=== PATIENT | female | born 1940 | race Hispanic/Latino ===

== ENCOUNTER 2018-09-29 04:57 | Emergency (ER) | payer MEDICARE, MEDICAID, SELFPAY | END 2018-09-29 08:43 | PROVIDERS: Emergency Provider Emergency Medicine; Visit Provider Emergency Medicine | DX: S80.01XA Contusion of right knee, initial encounter (principal); F03.90 Unspecified dementia, unspecified severity, without behavioral disturbance, psychotic disturbance, mood disturbance, and anxiety; W19.XXXA Unspecified fall, initial encounter | CPT/HCPCS: 99284; 51701; 81001; 73562; 70450; 72125; L0140 ==

== ENCOUNTER 2019-02-24 00:21 | Emergency (ER) | payer MEDICARE, MEDICAID, SELFPAY ==
--- NOTE | ~2019-02-24 | XR_ITS ---
EXAMINATION: XR hip RT 2V w AP pelvis DATE: 02/24/2019 01:05 INDICATION: Right hip pain post fall TECHNIQUE: Anteroposterior view of the pelvis and anteroposterior, frog leg and cross-table lateral v iews of the right hip were obtained. COMPARISON: None. FINDINGS: Alignment is normal. No fracture. Polyarticular osteoarthritis, mild at the right hip and left sacroi liac joint and moderate at the left hip and right sacroiliac joint. Moderate to severe lower lumbar s pondylosis. Suture line in the right lower quadrant. Scattered phleboliths and atherosclerotic calcif ications. IMPRESSION: 1. Scattered degenerative skeletal changes. No acute osseous abnormality. Reviewed, dictated and finalized at location A. SKINNER
--- NOTE | ~2019-02-24 | CT_ITS ---
EXAMINATION: CT brain wo con DATE: 02/24/2019 01:09 INDICATION: Head injury. TECHNIQUE: Computed tomography (CT) of the head was performed without intravenous contrast. The mA wa s adjusted according to patient size. Iterative reconstruction technique was employed. The dose-lengt h product was 605.33 mGy-cm. COMPARISON: Head CT 11/25/2018 FINDINGS: There are scattered areas of low attenuation in the cerebral white matter, which is within normal limits for the patient's age. There is no intracranial hemorrhage, acute infarction, or abnorm al intracranial mass lesion. The ventricles are normal in size. There is a right lateral scalp hemato ma. The paranasal sinuses are clear. There are likely changes of ocular lens replacement surgeries. T he mastoid air cells are normal. IMPRESSION: 1. Normal aging brain. Reviewed, dictated and finalized at location B. [employer]AB[employer]TER IMPRESSION: 1. Normal aging brain.
[2019-02-24 00:22] VITALS: BP 165/110; PULSE 83; RESP 15; TEMP 36.3; O2SAT 100
--- NOTE | 2019-02-24 00:27 | ED.FALL ---
HPI - Fall General Chief Complaint: Fall Stated Complaint: fall Time Seen by Provider: 02/24/19 00:22 Source: patient Mode of arrival: EMS Limitations: dementia History of Present Illness HPI Narrative: The pt is a 78 y/o female who presents to the ED, via EMS, with c/o a recent fall that occurred tonight. Per EMS, the pt was walking to the bathroom from bed when she slipped on water and fell. The pt hit the back of her head and currently reports pain at the back of her head. She denies neck pain, pain in her extremities, ABD pain, or CP. The pt is primarily Guyanese-speaking. A complete HPI and PMHx was limited by the pt's dementia. MD complaint: fall Fall from: standing Fall witnessed: no Location of injury: head (back of head) Associated symptoms (after fall): other (none) Related Data Allergies Allergy/AdvReac Type Severity Reaction Status Date / Time iohexol Allergy Unknown Verified 02/24/19 03:19 [From CONTRAST - CT, XRAY] shellfish derived Allergy Unknown Verified 02/24/19 03:19 Review of Systems Review of Systems: ROS unobtainable: other (A complete ROS was limited by the pt's dementia.) Cardiovascular: Cardiovascular: Denies chest pain Gastrointestinal: Gastrointestinal: Denies abdominal pain Musculoskeletal: Musculoskeletal: Denies neck pain and Denies other (pain in extremities) Neurologic: Reports other (pain at back of head) PMFSH Comments A complete PMHx was unobtainable due to the pt's dementia. Exam Narrative: Exam Narrative: GENERAL: Well-appearing, well-nourished, and in no acute distress. HEAD: Normocephalic, lhematoma right occipital parietal region. EYES: PERRLA and EOMI. ENT: Mucous membranes moist. CHEST: Clear to auscultation. No respiratory distress. HEART: Regular rate and rhythm. Normal peripheral pulses EXTREMITIES: Normal range of motion. No edema. Mild tenderness of the right hip without shortening or deformity. SKIN: Warm, dry, no rash. NEURO: Alert and oriented x2. Follows commands without issue. Course Course Emergency Course: Unremarkable x-ray of the hip. Patient with evidence of contusion on CT of the brain. Discharge back to residential. Vital Signs Vital signs: Vital Signs Temperature 97.3 F L 02/24/19 00:22 Pulse Rate 83 11/19/19 00:22 Respiratory Rate 15 02/24/19 00:22 Blood Pressure 165/110 H 02/24/19 00:22 Pulse Oximetry 100 02/24/19 00:22 Temperature 97.3 F L 02/24/19 00:22 Pulse Rate 74 02/24/19 03:00 Respiratory Rate 16 02/24/19 03:00 Blood Pressure 124/62 02/24/19 03:00 Pulse Oximetry 100 02/24/19 03:00 MDM - Fall Imaging Data My impression: Rt HIP/PELVIS XR: Negative as interpreted by EDP. Radiologist's impression: CT Head 02/24/19: Area of increased density in the lt frontal lobe image 28 may represent a parenchymal contusion of a controcoup injury. No midline shift. Visualized paranasal sinuses are clear. Case discussed with Dr. Call at 2:18 Eastern time. Discharge Plan Discharge Clinical Impression: Brain contusion Qualifiers: Encounter type: initial encounter Loss of consciousness presence/duration: without LOC Qualified Code(s): S06.2X0A - Diffuse traumatic brain injury without loss of consciousness, initial encounter Concussion Qualifiers: Encounter type: initial encounter Loss of consciousness presence/duration: without LOC Qualified Code(s): S06.0X0A - Concussion without loss of consciousness, initial encounter Patient Disposition: Home, Self-Care Condition: Stable Instructions: Concussion (ED) Additional Instructions: Return to the ER if you have fever over 101F, you cannot keep down food/water, you lose consciousness, or have other concerns. Follow-up/Referrals: UNKNOWN,DOCTOR [Primary Care Provider] -
[2019-02-24 01:30] VITALS: BP 103/86; PULSE 84; RESP 18; O2SAT 97
[2019-02-24 02:00] VITALS: BP 134/57; PULSE 80; RESP 16; O2SAT 99
[2019-02-24 03:00] VITALS: BP 124/62; PULSE 74; RESP 16; O2SAT 100
--- NOTE | 2019-02-24 03:41 | PC.NURSE ---
report given to Carmen at [facility].
--- NOTE | 2019-02-24 03:41 | PC.NURSE ---
Called [facility] to transport patient back to residential. ETA [id number]
[2019-02-24 04:36] VITALS: BP 121/63; PULSE 80; RESP 18; O2SAT 100
== END 2019-02-24 04:36 ==
PROVIDERS: Emergency Provider Emergency Medicine
DX: S06.2X0A Diffuse traumatic brain injury without loss of consciousness, initial encounter (principal); F03.90 Unspecified dementia, unspecified severity, without behavioral disturbance, psychotic disturbance, mood disturbance, and anxiety; W01.0XXA Fall on same level from slipping, tripping and stumbling without subsequent striking against object, initial encounter
CPT/HCPCS: 70450; 73502; 73521; 99284

== ENCOUNTER 2019-10-01 06:16 | Emergency (ER) | payer MEDICARE, MEDICAID, SELFPAY ==
--- NOTE | ~2019-10-01 | XR_ITS ---
EXAMINATION: XR chest 1V portable DATE: 10/01/2019 06:52 INDICATION: Transient alteration of awareness TECHNIQUE: frontal view of the chest was obtained. COMPARISON: None FINDINGS: No airspace opacities, pulmonary edema, pleural effusion or pneumothorax. Small calcification project ing over the right apex which could represent old granulomatous disease or atherosclerotic calcificat ion along the right carotid artery. The cardiomediastinal silhouette is normal. Coronary artery stent ing. Suggestion of old healed fracture deformity at the right humeral neck. Moderate degenerative ske letal changes in the spine and at both shoulders. IMPRESSION: 1. No acute cardiopulmonary disease. Reviewed, dictated and finalized at location A.
[2019-10-01 06:16] VITALS: BP 115/58; PULSE 81; RESP 12; TEMP 36.3; O2SAT 100
[2019-10-01 06:30] LABS: Glucose Point of Care 39 (65-105)
--- NOTE | 2019-10-01 07:02 | ED.AMS ---
HPI - Altered Mental Status General Chief Complaint: Altered Mental Status Stated Complaint: AMS/LOW BLOOD SUGAR Time Seen by Provider: 10/01/19 06:58 History of Present Illness HPI narrative: History limited by dementia. BIBEMS from long-term for AMS. Initial glucose per EMS was in the 30s. Started on D10. On my evaluation mental status is improving. She has severe dementia, but seems to be at baseline. Related Data Home Medications Medication Instructions Recorded Confirmed acetaminophen 650 mg PO ONCE PRN 02/24/19 02/24/19 divalproex [Depakote Sprinkles] 250 mg PO TID 02/24/19 02/24/19 fluticasone propionate [Flonase 1 spray INTRANASAL Q4H PRN 02/24/19 02/24/19 Allergy Relief] folic acid 1 mg PO DAILY 02/24/19 02/24/19 guaifenesin 200 mg PO Q4H PRN 02/24/19 02/24/19 insulin detemir U-100 [Levemir 5 unit SUBCUT DAILY 02/24/19 02/24/19 U-100 Insulin] levetiracetam [Keppra] 500 mg PO BID 02/24/19 02/24/19 levothyroxine 25 mcg PO DAILY 02/24/19 02/24/19 loratadine 10 mg PO DAILY 02/24/19 02/24/19 melatonin 10 mg PO HS 02/24/19 02/24/19 metformin 500 mg PO BID 02/24/19 02/24/19 multivitamin with minerals [Daily 1 tablet PO DAILY 02/24/19 02/24/19 Multivitamin-Minerals] sennosides-docusate sodium 1 tab-cap PO DAILY 02/24/19 02/24/19 sodium phosphates [Fleet Enema] 118 ml IN ONCE PRN 02/24/19 02/24/19 trazodone 50 mg PO HS 02/24/19 02/24/19 Allergies Allergy/AdvReac Type Severity Reaction Status Date / Time iohexol Allergy Unknown Verified 02/24/19 03:20 [From CONTRAST - CT, XRAY] shellfish derived Allergy Unknown Verified 02/24/19 03:20 Review of Systems Review of Systems: ROS unobtainable: Yes unobtainable due to mental status PMFSH Past Medical History Medical History Diabetes Exam Const: General: alert Nutritional Appearance: well nourished HENMT: Other: endentulous Eyes: Pupils: Equal, round and reactive pupils present Resp: Effort & Inspection: normal respiratory effort Auscultation: clear to auscultation bilaterally Cardio: Rate: regular rate Rhythm: regular rhythm GI: GI Palp: Yes Soft to palpation and No Tenderness to palpation present (GI) Skin: General skin exam: normal color Neuro: General: moves all extremities and CN's II-XI intact bilaterally Course Vital Signs Vital signs: Vital Signs Temperature 36.3 C L 10/01/19 06:16 Pulse Rate 81 10/01/19 06:16 Respiratory Rate 12 10/01/19 06:16 Blood Pressure 115/58 L 10/01/19 06:16 Pulse Oximetry 100 10/01/19 06:16 Temperature 36.3 C L 10/01/19 06:16 Pulse Rate 78 10/01/19 10:28 Respiratory Rate 21 H 10/01/19 10:28 Blood Pressure 105/47 L 10/01/19 10:28 Pulse Oximetry 99 10/01/19 10:28 MDM - Altered Mental Status MDM Narrative Medical decision making narrative: She returned to baseline quickly with correction of her blood sugar. She does have a UTI and appears mildly dehydrated. Medical Records Attestation: I reviewed the patient's medical records. Lab Data Attestation: I reviewed the patient's lab results. Result diagrams: 10/01/19 07:32 10/01/19 07:32 Labs: Lab Results 10/01/19 10/01/19 10/01/19 Range/Units 06:25 07:04 07:32 WBC 5.4 (4.5-10.0) K/mm3 RBC 3.59 L (4.2-5.4) M/mm3 Hgb 12.1 (12.0-15.0) g/dL Hct 36.8 L (37.0-47.0) % MCV 102.5 H (80-100) fl MCH 33.7 (26-34) pg MCHC 32.9 (32-36) g/dl RDW 13.1 (11.5-14.5) % Plt Count 179 (150-375) k/mm3 MPV 13.7 H (7.4-10.4) fl Immature Gran % (Auto) 0.4 (0-0.5) % Neut % (Auto) 83.7 H (45.5-73.1) % Lymph % (Auto) 11.6 L (18.3-44.2) % Winston % (Auto) 3.9 (2.6-8.5) % Eos % (Auto) 0.2 (0-4.4) % Baso % (Auto) 0.2 (0.2-1.2) % Lymph # (Auto) 0.63 L (0.9-3.2) K/mm3 Winston # (Auto) 0.2 (0.1-0.6) K/mm3 Eos # (Auto) 0.0 (0-0.3) K/mm3 Baso # (Auto) 0.0 (0.0-0.
[2019-10-01 07:10] LABS: Glucose Point of Care 210 (65-105)
[2019-10-01 07:42] LABS: Basophils Percent Auto 0.2 % (0.2-1.2); Eosinophils Percent Auto 0.2 % (0-4.4); Hematocrit 36.8 % (37.0-47.0); Hemoglobin 12.1 g/dL (12.0-15.0); Immature Granulocyte Absolute 0.02 K/mm3 (0.00-0.031); Immature Granulocyte Percent A 0.4 % (0-0.5); Immature Platelet Fraction Pct 10.3 % (0.9-11.2); Lymphocytes Absolute Auto 0.63 K/mm3 (0.9-3.2); Lymphocytes Percent Auto 11.6 % (18.3-44.2); Mean Corpuscular HGB Conc 32.9 g/dl (32-36); Mean Corpuscular Hemoglobin 33.7 pg (26-34); Mean Corpuscular Volume 102.5 fl (80-100); Mean Platelet Volume 13.7 fl (7.4-10.4); Monocytes Absolute Auto 0.2 K/mm3 (0.1-0.6); Monocytes Percent Auto 3.9 % (2.6-8.5); Neutrophils Absolute Auto 4.6 K/mm3 (1.3-6.7); Neutrophils Percent Auto 83.7 % (45.5-73.1); Platelet Count Result 179 k/mm3 (150-375); Red Blood Count 3.59 M/mm3 (4.2-5.4); Red Cell Distribution Width 13.1 % (11.5-14.5); White Blood Count 5.4 K/mm3 (4.5-10.0)
[2019-10-01 07:53] LABS: Blood Urea Nitrogen 26 mg/dL (7-17); Calcium 8.9 mg/dL (8.4-10.2); Carbon Dioxide 22 mmol/L (22-30); Chloride 102 mmol/L (98-107); Estimated Glomerular Filt Rate > 60; Glucose 335 mg/dL (65-105); Potassium 5.1 mmol/L (3.4-5.0); Sodium 132 mmol/L (137-145)
--- NOTE | 2019-10-01 07:59 | PC.NURSE ---
This RN tried to straight cath pt. NO urine came out. Informed Dr. Armendariz of this
[2019-10-01] MEDS: SODIUM CHLORIDE 0.9% IV 1,000 ML 999 ML IV CONT (08:03)
--- NOTE | 2019-10-01 08:06 | PC.NURSE ---
Ordered breakfast tray for pt
--- NOTE | 2019-10-01 09:06 | PC.NURSE ---
This RN went into check on cath, pt is still not able to give urine.
[2019-10-01 09:23] LABS: Glucose Point of Care 215 (65-105)
[2019-10-01 09:32] LABS: Add Urine Microscopic? YES; Appearance Urine Clear (Clear); Bilirubin Urine Negative (Negative); Color Urine Yellow (Yellow); Glucose Urine UA 3+ mg/dL (Negative); Ketones Urine Trace mg/dL (Negative); Leukocyte Esterase Ur 1+ LEU/UL (Negative); Mucus Urine Rare /lpf; Nitrate Urine Negative (Negative); Protein Urine 1+ mg/dL (Negative); Specific Grav Ur 1.023 (1.001-1.035); Squamous Epithelial Cell Urine Occasional /hpf (Few)
[2019-10-01 09:37] LABS: Blood Urine Negative (Negative)
[2019-10-01] MEDS: CIPROFLOXACIN 500 MG TAB PO (10:20)
[2019-10-01 10:28] VITALS: BP 105/47; PULSE 78; RESP 21; O2SAT 99
== END 2019-10-01 11:15 ==
PROVIDERS: Emergency Medicine; Emergency Provider Emergency Medicine
DX: F03.90 Unspecified dementia, unspecified severity, without behavioral disturbance, psychotic disturbance, mood disturbance, and anxiety (principal); E11.649 Type 2 diabetes mellitus with hypoglycemia without coma; Z79.4 Long term (current) use of insulin; Z79.84 Long term (current) use of oral hypoglycemic drugs
CPT/HCPCS: 36415; 51701; 71045; 80048; 81001; 82948; 85025; 85055; 87086; 96360; 96361; 99283; A9270; J7030

== ENCOUNTER 2019-11-02 13:15 | Emergency (ER) | payer MEDICARE, MEDICAID, SELFPAY ==
[2019-11-02] VITALS (7 sets, daily range): BP systolic 102–130; BP diastolic 61–70; PULSE 70–79; RESP 12–20; TEMP 36.6; O2SAT 99–100
--- NOTE | ~2019-11-02 | XR_ITS ---
EXAMINATION: XR pelvis 1-2V DATE: 11/02/2019 14:35 INDICATION: Pelvic pain. Fall. TECHNIQUE: An anteroposterior view of the pelvis was obtained. COMPARISON: Pelvis radiograph 02/24/2019 FINDINGS: Bone alignment is normal. No fracture. There is mild right hip osteoarthritis and moderate left hip osteoarthritis. There is moderate lumbar spondylosis. IMPRESSION: 1. Mild right hip osteoarthritis and moderate left hip osteoarthritis. Reviewed, dictated and finalized at location A.
--- NOTE | ~2019-11-02 | CT_ITS ---
EXAMINATION: CT brain wo con, CT cervical spine wo con EXAM DATE: 11/02/2019 14:29 INDICATION: Initial encounter following injury, with pain of the head. Forehead laceration. Head inj ury. TECHNIQUE: Spiral CT of the head was performed without contrast. Axial, coronal and sagittal images were reviewed. Spiral CT of the cervical spine was performed without contrast. Axial images were rev iewed. Coronal and sagittal reformatted images were also reviewed. The dose-length product (DLP) fo r this examination was 605.33 (accession [id number]), 107.16 (accession [id number]) mGy-cm. The exposure was tailored according to patient size, and iterative reconstruction (ASIR) was used as additional dose reduction technique. Comparison is made to prior examination from 02/24/2019. FINDINGS: HEAD CT: There is no acute intraparenchymal hemorrhage. No evidence of intraparenchymal brain mass l esion. No evidence of acute infarction. There is mild periventricular and subcortical hypodensity, n onspecific but probably related to small vessel ischemic disease. There is moderate prominence of t he sulci and ventricles related to cerebral atrophy. There is intracranial carotid arteriosclerosis . There is no mass effect or midline shift. There is no obstructive hydrocephalus suspected. There are no extra-axial collections. There are no acute calvarial fractures. Patient has had bilateral ocular lens surgery. Deep frontal laceration identified. The visualized sinuses and mastoid air cell s are well aerated. 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 There is no evidence of acute cervical fracture. The odontoid process is intact. Pre-dens sp surjit is normal. Prevertebral soft tissue is normal. There are no soft tissue abnormalities identifie d. There is no disc space widening or traumatic vertebral body subluxation suspected. There is mode rate to severe cervical disc disease, and moderate cervical arthropathy. A detailed level by level e valuation of spondylosis can be added as addendum if requested. IMPRESSION: 1. No acute intracranial findings or cervical fracture. 2. Frontal laceration. 3. Age-related findings. Reviewed, dictated and finalized at location A. IMPRESSION: 1. No acute intracranial findings or cervical fracture. 2. Frontal laceration. 3. Age-related findings.
--- NOTE | 2019-11-02 13:53 | ED.GENADULT ---
HPI - General Adult General Chief complaint: Fall Stated complaint: FALL/LAC Time Seen by Provider: 11/02/19 13:22 Source: patient Mode of arrival: ambulatory Limitations: no limitations History of Present Illness HPI narrative: Patient is a 79-year-old female who presents from group home patient had an unwitnessed fall reportedly patient does ambulate and has had frequent falls and been seen in the emergency department. Patient presents with a laceration to the mid forehead. Patient is a limited historian with history of dementia and is reportedly at her baseline of ANO x1. 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 Patient denies any pain. Patient is alert and oriented to self. Patient is a DNR. Related Data Home Medications Medication Instructions Recorded Confirmed acetaminophen 650 mg PO ONCE PRN 02/24/19 02/24/19 divalproex [Depakote Sprinkles] 250 mg PO TID 02/24/19 02/24/19 fluticasone propionate [Flonase 1 spray INTRANASAL Q4H PRN 02/24/19 02/24/19 Allergy Relief] folic acid 1 mg PO DAILY 02/24/19 02/24/19 guaifenesin 200 mg PO Q4H PRN 02/24/19 02/24/19 insulin detemir U-100 [Levemir 5 unit SUBCUT DAILY 02/24/19 02/24/19 U-100 Insulin] levetiracetam [Keppra] 500 mg PO BID 02/24/19 02/24/19 levothyroxine 25 mcg PO DAILY 02/24/19 02/24/19 loratadine 10 mg PO DAILY 02/24/19 02/24/19 melatonin 10 mg PO HS 02/24/19 02/24/19 metformin 500 mg PO BID 02/24/19 02/24/19 multivitamin with minerals [Daily 1 tablet PO DAILY 02/24/19 02/24/19 Multivitamin-Minerals] sennosides-docusate sodium 1 tab-cap PO DAILY 02/24/19 02/24/19 sodium phosphates [Fleet Enema] 118 ml [place] ONCE PRN 02/24/19 02/24/19 trazodone 50 mg PO HS 02/24/19 02/24/19 Allergies Allergy/AdvReac Type Severity Reaction Status Date / Time iohexol Allergy Unknown Verified 11/02/19 13:21 [From CONTRAST - CT, XRAY] shellfish derived Allergy Unknown Verified 11/02/19 13:21 Contrast Media Allergy Unknown Unknown Uncoded 10/01/19 17:09 Review of Systems Review of Systems: ROS unobtainable: Yes unobtainable due to medical condition PMFSH Past Medical History Medical History Diabetes Exam Narrative: Exam Narrative: GENERAL: Well-appearing, well-nourished, and in no acute distress. HEAD: Normocephalic, linear half centimeter laceration superficial mid forehead EYES: PERRLA and EOMI. ENT: Nares clear, no rhinorrhea or epistaxis. Mucous membranes moist. Oropharynx without tonsillar hypertrophy exudate or other lesions. NECK: Supple. No adenopathy or masses. CHEST: Clear to auscultation. No respiratory distress. No wheezes rales or rhonchi HEART: Regular rate and rhythm. No murmur heard. Normal peripheral pulses. EXTREMITIES: Normal range of motion. No edema. Extremities palpated nontender no deformities SKIN: Warm, dry, no rash. NEURO: Alert and oriented x1. Cranial nerves II through XII grossly intact. Patient with normal speech pleasant answering questions PSYCH: Normal mood and affect. Course Course Emergency Course: Patient evaluated in the emergency department no high risk changes will be treated for urinary tract infection had closure of her wound will be sent back to group home for reevaluation by primary care Vital Signs Vital signs: Vital Signs Temperature 97.9 F 11/02/19 13:19 Pulse Rate 79 11/02/19 13:19 Respiratory Rate 11/02/19 13:19 Pulse Oximetry 100 11/02/19 13:19 Temperature 97.9 F 11/02/19 13:19 Pulse Rate 76 11/02/19 15:38 Respiratory Rate 11/02/19 15:38 Blood Pressure 103/68 11/02/19 15:38 Pulse Oximetry 99 11/02/19 15:38 Procedures Laceration Laceration 1: Date: 11/02/19 Time: 15:54 Site: face Size (cm): 1 Description: linear ====== Skin Level ====== Skin laye
[2019-11-02 14:24] LABS: Basophils Percent Auto 0.3 % (0.2-1.2); Eosinophils Percent Auto 0.5 % (0-4.4); Hematocrit 33.9 % (37.0-47.0); Hemoglobin 11.2 g/dL (12.0-15.0); Immature Granulocyte Absolute 0.02 K/mm3 (0.00-0.031); Immature Granulocyte Percent A 0.3 % (0-0.5); Lymphocytes Absolute Auto 1.66 K/mm3 (0.9-3.2); Lymphocytes Percent Auto 25.7 % (18.3-44.2); Mean Corpuscular Hemoglobin 34.8 pg (26-34); Mean Corpuscular Volume 105.3 fl (80-100); Mean Platelet Volume 12.7 fl (7.4-10.4); Monocytes Absolute Auto 0.3 K/mm3 (0.1-0.6); Monocytes Percent Auto 5.3 % (2.6-8.5); Neutrophils Absolute Auto 4.4 K/mm3 (1.3-6.7); Neutrophils Percent Auto 67.9 % (45.5-73.1); Platelet Count Result 167 k/mm3 (150-375); Red Blood Count 3.22 M/mm3 (4.2-5.4); Red Cell Distribution Width 12.6 % (11.5-14.5); White Blood Count 6.5 K/mm3 (4.5-10.0)
[2019-11-02 14:28] LABS: Blood Urea Nitrogen 21 mg/dL (7-17); Calcium 9.4 mg/dL (8.4-10.2); Carbon Dioxide 21 mmol/L (22-30); Chloride 108 mmol/L (98-107); Estimated Glomerular Filt Rate > 60; Glucose 84 mg/dL (65-105); Sodium 139 mmol/L (137-145)
[2019-11-02 15:07] LABS: Add Urine Microscopic? YES; Appearance Urine Cloudy (Clear); Bacteria Urine Trace /hpf; Bilirubin Urine Negative (Negative); Budding Yeast Urine Present /hpf; Color Urine Amber (Yellow); Glucose Urine UA 3+ mg/dL (Negative); Ketones Urine Trace mg/dL (Negative); Leukocyte Esterase Ur 3+ LEU/UL (Negative); Mucus Urine Rare /lpf; Nitrate Urine Negative (Negative); Protein Urine 2+ mg/dL (Negative); Specific Grav Ur 1.017 (1.001-1.035); Squamous Epithelial Cell Urine Rare /hpf (Few); Urobilinogen Urine Negative mg/dL (<2.0); WBC Urine >75 /hpf
[2019-11-02 15:12] LABS: Blood Urine Negative (Negative)
--- NOTE | 2019-11-02 17:01 | PC.NURSE ---
[facility] declined return-no isaiah
--- NOTE | 2019-11-02 17:07 | PC.NURSE ---
[facility] accepted...eta 45 min .... Trip # [id number]
--- NOTE | 2019-11-02 17:30 | PC.NURSE ---
Gave report to [facility]'s Forest Firefighter about Pt. discharge and gave instructions at 1600. Called family to have them transport Pt. back. Pt. family stated that per Forest Firefighter at [facility] that she needs to go by ambulance. Pt. does qualify for an ambulance. [facility] stated 45 min ETA at 1715
--- NOTE | 2019-11-02 19:35 | PC.NURSE ---
bed alarm placed on pt. pt got up out of bed on her own, ambulated to nurses station by her self.
== END 2019-11-02 19:45 ==
PROVIDERS: Emergency Medicine Emergency Medical Services; Emergency Provider Emergency Medicine
DX: S01.81XA Laceration without foreign body of other part of head, initial encounter (principal); N39.0 Urinary tract infection, site not specified; E11.9 Type 2 diabetes mellitus without complications; Z79.4 Long term (current) use of insulin; Z79.84 Long term (current) use of oral hypoglycemic drugs; M16.0 Bilateral primary osteoarthritis of hip; W19.XXXA Unspecified fall, initial encounter
CPT/HCPCS: 12011; 36415; 51701; 70450; 72125; 72170; 80048; 81001; 85025; 87086; 99284

== ENCOUNTER 2019-11-07 09:57 | Emergency (ER) | payer MEDICARE, MEDICAID, SELFPAY ==
[2019-11-07] VITALS (8 sets, daily range): BP systolic 105–143; BP diastolic 60–93; PULSE 80–108; RESP 14–21; TEMP 36.3; O2SAT 99–100
--- NOTE | ~2019-11-07 | CT_ITS ---
EXAMINATION: CT brain wo con EXAM DATE: 11/07/2019 10:37 INDICATION: Fall, right frontal contusion. TECHNIQUE: Spiral CT of the head was performed without contrast. Axial, coronal and sagittal images were reviewed. The dose-length product (DLP) for this examination was 605.33 mGy-cm. The exposure w as tailored according to patient size, and iterative reconstruction (ASIR) was used as additional dos e reduction technique. Comparison is made to prior examination from 11/02/2019. FINDINGS: There is interval development of acute nondisplaced closed posttraumatic fracture of the ri ght zygomatic arch, interval development of acute essentially nondisplaced right orbital inferior wal l fracture, and small amount of gas posterior to the right maxillary sinus wall likely indicating pos terior maxillary sinus wall fracture. There is no calvarial fracture, but there is a small acute subdural hematoma overlying the right temp oral lobe. There is small right frontal scalp contusion. Small amount of acute right frontal anterior paramedian subarachnoid hemorrhage, location most consistent with posttraumatic etiology. No acute intraparenchymal hemorrhage. There is mild microangiopathy and moderate cerebral atrophy. Sc attered carotid siphon arterial sclerosis. Bilateral cataract surgery. IMPRESSION: 1. Small acute right-sided subdural hematoma. 2. Small right-sided subarachnoid hemorrhage anterior paramedian location, likely posttraumatic. 3. Nondisplaced right inferior orbital wall, and probable posterior maxillary sinus wall fractures. 4. Right-sided zygomatic arch fracture. 5. Right frontal scalp hematoma. I discussed these findings with Jose Armendariz MD at 11/07/2019 10:46 CDT. Reviewed, dictated and finalized at location A. IMPRESSION: 1. Small acute right-sided subdural hematoma. 2. Small right-sided subarachnoid hemorrhage anterior paramedian location, lik chavo posttraumatic. 3. Nondisplaced right inferior orbital wall, and probable posterior maxillary sinus wall fractures. 4. Right-sided zygomatic arch fracture. 5. Right frontal scalp hematoma. I discussed these findings with Jose Armendariz MD at 11/07/2019 10:46 CDT.
--- NOTE | 2019-11-07 09:58 | ECG_ITS ---
Measurements Intervals Mckee Rate: 86 P: 58 MA: 113 QRS: -5 QRSD: 92 T: 123 QT: 366 QTc: 438 Interpretive Statements SINUS RHYTHM WITH SHORT MA INTERVAL INCOMPLETE RIGHT BUNDLE BRANCH BLOCK CANNOT RULE OUT SEPTAL INFARCT, AGE INDETERMINATE NONSPECIFIC ST & T-WAVE ABNORMALITY- DIFFUSE LEADS BASELINE ARTIFACT- I, III, AVR, AVL, AVF, V1-V6 ABNORMAL ECG Electronically Signed On 11-07-2019 11:27:47 CDT by Irwin Perry D.O.
--- NOTE | 2019-11-07 10:10 | ED.FALL ---
HPI - Fall General Chief Complaint: Fall Stated Complaint: fall Time Seen by Provider: 11/07/19 10:09 History of Present Illness HPI Narrative: History limited by dementia and language barrier 79 yo female [facility] after a witnessed fall. She was seen suddenly slumping to the ground. She was noted to have struck her head on either the wall or floor. She has a laceration over the right temporal region. No blood thinners. Related Data Home Medications Medication Instructions Recorded Confirmed acetaminophen 650 mg PO ONCE PRN 02/24/19 02/24/19 divalproex [Depakote Sprinkles] 250 mg PO TID 02/24/19 02/24/19 fluticasone propionate [Flonase 1 spray INTRANASAL Q4H PRN 02/24/19 02/24/19 Allergy Relief] folic acid 1 mg PO DAILY 02/24/19 02/24/19 guaifenesin 200 mg PO Q4H PRN 02/24/19 02/24/19 insulin detemir U-100 [Levemir 5 unit SUBCUT DAILY 02/24/19 02/24/19 U-100 Insulin] levetiracetam [Keppra] 500 mg PO BID 02/24/19 02/24/19 levothyroxine 25 mcg PO DAILY 02/24/19 02/24/19 loratadine 10 mg PO DAILY 02/24/19 02/24/19 melatonin 10 mg PO HS 02/24/19 02/24/19 metformin 500 mg PO BID 02/24/19 02/24/19 multivitamin with minerals [Daily 1 tablet PO DAILY 02/24/19 02/24/19 Multivitamin-Minerals] sennosides-docusate sodium 1 tab-cap PO DAILY 02/24/19 02/24/19 sodium phosphates [Fleet Enema] 118 ml [place] ONCE PRN 02/24/19 02/24/19 trazodone 50 mg PO HS 02/24/19 02/24/19 Allergies Allergy/AdvReac Type Severity Reaction Status Date / Time iohexol Allergy Unknown Verified 11/07/19 10:52 [From CONTRAST - CT, XRAY] shellfish derived Allergy Unknown Verified 11/07/19 10:52 Contrast Media Allergy Unknown Unknown Uncoded 11/07/19 10:52 Review of Systems Review of Systems: ROS unobtainable: Yes unobtainable due to mental status [facility] Past Medical History Medical History Diabetes Social History Social History (Updated 11/07/19 @ 11:13 by Jose Armendariz MD) [facility] Exam Const: General: alert and confusion Limitations: language barrier HENMT: Other: 2 cm laceration to right temporal region Eyes: Conjunctivae: conjunctivae normal Pupils: Equal, round and reactive pupils present EOM: EOMs intact bilaterally Neck: Neck: normal visual inspection Resp: Effort & Inspection: normal respiratory effort Auscultation: clear to auscultation bilaterally Cardio: Rate: regular rate Rhythm: regular rhythm Skin: General skin exam: normal color Neuro: General: moves all extremities Other: exam limited by dementia and language barrier Extrem: General: normal to inspection Course Vital Signs Vital signs: Vital Signs Temperature 36.3 C L 11/07/19 09:50 Pulse Rate 91 11/07/19 09:50 Respiratory Rate 18 11/07/19 09:50 Blood Pressure 143/93 H 11/07/19 09:50 Pulse Oximetry 100 11/07/19 09:50 Temperature 36.3 C L 11/07/19 09:50 Pulse Rate 84 11/07/19 13:32 Respiratory Rate 16 11/07/19 13:32 Blood Pressure 111/79 11/07/19 13:32 Pulse Oximetry 100 11/07/19 13:32 Procedures Laceration Laceration 1: Date: 11/07/19 Time: 12:20 Site: face Side (If applicable): right Size (cm): 2 Description: linear Depth: simple, single layer Local Anesthetic: none ====== Skin Level ====== Skin layer closed with: dermabond ====== Subcutaneous Layer ====== ====== Muscle Layer ====== ====== Tendon Layer ====== MDM - Fall MDM Narrative Medical decision making narrative: CT shows small SDH and subarachnoid as well as multiple facial fractures. She will need dedicated facial films. This can be done after transfer as she will need repeat brain imaging anyway. Medical Records Attestation: I reviewed the patient's medical records. Lab Data Attestation: I reviewed the patient's lab results. Result diagrams: 11/07/19 11
--- NOTE | 2019-11-07 10:49 | PC.NURSE ---
Called patients son and daughter in law. The daughter in law answered and I told her the situation and asked what hospital they preferred. Family requested [facility]. notified.
[2019-11-07] MEDS: ONDANSETRON INJ 4 MG/2 ML VIAL IV PUSH (11:11)
--- NOTE | 2019-11-07 11:14 | PC.NURSE ---
Called report to SILVIO James at [facility]
[2019-11-07 11:22] LABS: Basophils Percent Auto 0.4 % (0.2-1.2); Eosinophils Percent Auto 0.3 % (0-4.4); Hematocrit 33.4 % (37.0-47.0); Hemoglobin 10.8 g/dL (12.0-15.0); Immature Granulocyte Absolute 0.02 K/mm3 (0.00-0.031); Immature Granulocyte Percent A 0.3 % (0-0.5); Immature Platelet Fraction Pct 13.2 % (0.9-11.2); Lymphocytes Absolute Auto 1.05 K/mm3 (0.9-3.2); Lymphocytes Percent Auto 13.1 % (18.3-44.2); Mean Corpuscular HGB Conc 32.3 g/dl (32-36); Mean Corpuscular Hemoglobin 34.8 pg (26-34); Mean Corpuscular Volume 107.7 fl (80-100); Mean Platelet Volume 13.6 fl (7.4-10.4); Monocytes Absolute Auto 0.3 K/mm3 (0.1-0.6); Monocytes Percent Auto 3.1 % (2.6-8.5); Neutrophils Absolute Auto 6.6 K/mm3 (1.3-6.7); Neutrophils Percent Auto 82.8 % (45.5-73.1); Platelet Count Result 135 k/mm3 (150-375); Red Cell Distribution Width 12.5 % (11.5-14.5)
--- NOTE | 2019-11-07 11:24 | PC.NURSE ---
[facility] unable for transfer [facility] accepted ETA 45min Trip # [id number]
[2019-11-07 11:33] LABS: Anion Gap 11.5 mmol/L (7-16); Blood Urea Nitrogen 26 mg/dL (7-17); Calcium 9.7 mg/dL (8.4-10.2); Carbon Dioxide 24 mmol/L (22-30); Chloride 107 mmol/L (98-107); Estimated Glomerular Filt Rate > 60; Glucose 262 mg/dL (65-105); Partial Thromboplastin Time 21.6 SECONDS (22.3-36.8); Potassium 4.5 mmol/L (3.4-5.0); Sodium 138 mmol/L (137-145)
[2019-11-07 11:56] LABS: Prothrombin Time 12.5 Seconds (11.1-14.7)
== END 2019-11-07 13:35 | disposition short-term general hospital (02) ==
PROVIDERS: Emergency Provider Emergency Medicine; PCP Family Medicine
DX: S06.6X0A Traumatic subarachnoid hemorrhage without loss of consciousness, initial encounter (principal); S06.5X0A Traumatic subdural hemorrhage without loss of consciousness, initial encounter; S02.31XA Fracture of orbital floor, right side, initial encounter for closed fracture; S02.40EA Zygomatic fracture, right side, initial encounter for closed fracture; S01.81XA Laceration without foreign body of other part of head, initial encounter; Z79.4 Long term (current) use of insulin; Z79.84 Long term (current) use of oral hypoglycemic drugs; E11.9 Type 2 diabetes mellitus without complications; F03.90 Unspecified dementia, unspecified severity, without behavioral disturbance, psychotic disturbance, mood disturbance, and anxiety; W18.30XA Fall on same level, unspecified, initial encounter; I45.10 Unspecified right bundle-branch block; R94.31 Abnormal electrocardiogram [ECG] [EKG]
CPT/HCPCS: 12011; 36415; 70450; 80048; 85025; 85055; 85610; 85730; 93005; 96374; 99291; J2405